=== PATIENT | male | born 1970 | race Caucasian/White ===

== ENCOUNTER 2021-06-20 11:34 | Emergency (ER) | payer OTHER ==
[~2021-06-20] VITALS: Ht 185.4 cm; Wt 84.8 kg
[2021-06-20] MEDS ORDERED: LOTREL 5-10 MG1 CAP PO (11:42)
[2021-06-20] MEDS ORDERED: LIPITOR20 MG PO (11:43)
[2021-06-20] MEDS ORDERED: PLAVIX75 MG (11:43)
[2021-06-20] MEDS ORDERED: ZETIA10 MG PO (11:43)
== END 2021-06-20 14:32 | disposition home or self-care (01) ==
LOC: ER 11:34
DX: S32.019A Unspecified fracture of first lumbar vertebra, initial encounter for closed fracture (principal); S22.31XA Fracture of one rib, right side, initial encounter for closed fracture; S39.92XA Unspecified injury of lower back, initial encounter; S51.011A Laceration without foreign body of right elbow, initial encounter; W10.8XXA Fall (on) (from) other stairs and steps, initial encounter; Y93.9 Activity, unspecified; Y92.9 Unspecified place or not applicable; Y99.9 Unspecified external cause status; Z88.0 Allergy status to penicillin; Z88.6 Allergy status to analgesic agent